=== PATIENT | female | born 1990 ===

== ENCOUNTER 2017-03-12 03:45 | Emergency (ER) | payer BC ==
[~2017-03-12] VITALS: Ht 154.9 cm; Wt 77.1 kg
[~2017-03-12 03:45] MED LIST: AMOXICILLIN500 MG PO; AMOXIL500 MG PO; BIRTH CONTROL1 EAC1 PO; MOTRIN800 MG PO; NKHM; ROBITUSSIN AC 110 ML PO; TRAMADOL HCL50 MG PO; ULTRAM50 MG PO; ZYRTEC10 MG PO
[2017-03-12] MEDS ORDERED: Motrin,Rufen800 MG PO (04:09)
[2017-03-12] MEDS ORDERED: PREDNISONE20 M1 PO (04:09)
[2017-03-12] MEDS ORDERED: KEFLEX500 M1 PO (04:09)
== END 2017-03-12 04:35 | disposition home or self-care (01) ==
LOC: ED 03:45
DX: J03.90 Acute tonsillitis, unspecified (principal)

== ENCOUNTER 2017-04-13 22:40 | Emergency (ER) | payer BC ==
[~2017-04-13] VITALS: Ht 157.4 cm; Wt 78.0 kg
[~2017-04-13 22:40] MED LIST changes: +KEFLEX500 M1 PO; +Motrin,Rufen800 MG PO; +PREDNISONE20 M1 PO
[2017-04-13] MEDS ORDERED: NORCO 5-325 TA1 EACH PO (23:18)
[2017-04-13] MEDS ORDERED: CLINDAMYCIN HC300 MG PO (23:18)
[2017-04-13] MEDS ORDERED: Motrin,Rufen800 MG PO (23:18)
== END 2017-04-14 00:06 | disposition home or self-care (01) ==
LOC: ED 22:40
DX: K04.01 Reversible pulpitis (principal); K02.9 Dental caries, unspecified; F17.200 Nicotine dependence, unspecified, uncomplicated

== ENCOUNTER 2017-05-08 22:10 | Emergency (ER) | payer BC ==
[~2017-05-08] VITALS: Ht 157.4 cm; Wt 77.1 kg
[~2017-05-08 22:10] MED LIST changes: +CLINDAMYCIN HC300 MG PO; +NORCO 5-325 TA1 EACH PO
== END 2017-05-08 23:42 | disposition home or self-care (01) ==
LOC: ED 22:10
DX: S61.214A Laceration without foreign body of right ring finger without damage to nail, initial encounter (principal); F17.200 Nicotine dependence, unspecified, uncomplicated; W25.XXXA Contact with sharp glass, initial encounter; Y93.9 Activity, unspecified; Y92.9 Unspecified place or not applicable; Y99.9 Unspecified external cause status

== ENCOUNTER 2017-08-15 16:06 | Emergency (ER) | payer BC ==
[~2017-08-15] VITALS: Ht 165.1 cm; Wt 79.4 kg
[2017-08-15] MEDS ORDERED: CYCLOBENZAPRINE10 MG PO (16:33)
[2017-08-15] MEDS ORDERED: NAPROSYN500 MG PO (16:33)
== END 2017-08-15 21:24 | disposition home or self-care (01) ==
LOC: ED 16:06
DX: G89.29 Other chronic pain (principal); M54.5 Low back pain

== ENCOUNTER 2018-07-29 18:06 | Emergency (ER) | payer SELFPAY ==
[~2018-07-29] VITALS: Wt 81.6 kg
[~2018-07-29 18:06] MED LIST changes: +CYCLOBENZAPRINE10 MG PO; +NAPROSYN500 MG PO
[2018-07-29] MEDS ORDERED: IBUPROFEN600 MG PO (19:03)
[2018-07-29] MEDS ORDERED: AUGMENTIN 875875 MG PO (19:03)
== END 2018-07-29 19:09 | disposition home or self-care (01) ==
LOC: ED 18:06
DX: K08.89 Other specified disorders of teeth and supporting structures (principal); R51 Headache

== ENCOUNTER 2018-09-17 11:04 | Emergency (ER) | payer SELFPAY ==
[~2018-09-17] VITALS: Ht 160 cm; Wt 79.4 kg
[~2018-09-17 11:04] MED LIST changes: +AUGMENTIN 875875 MG PO; +IBUPROFEN600 MG PO
== END 2018-09-17 14:55 | disposition home or self-care (01) ==
LOC: ED 11:04
DX: S63.501A Unspecified sprain of right wrist, initial encounter (principal); S40.021A Contusion of right upper arm, initial encounter; M25.521 Pain in right elbow; M25.511 Pain in right shoulder; M54.2 Cervicalgia; F17.200 Nicotine dependence, unspecified, uncomplicated; W00.2XXA Other fall from one level to another due to ice and snow, initial encounter; Y93.01 Activity, walking, marching and hiking; Y92.89 Other specified places as the place of occurrence of the external cause; Y99.8 Other external cause status

== ENCOUNTER 2018-12-07 12:07 | Emergency (ER) | payer SELFPAY ==
[~2018-12-07] VITALS: Ht 157.4 cm; Wt 81.6 kg
[2018-12-07] MEDS ORDERED: LIDEX 0.05% CRE15 GM T (14:42)
[2018-12-07] MEDS ORDERED: AMOXICILLIN500 M2 PO (14:42)
== END 2018-12-07 15:12 | disposition home or self-care (01) ==
LOC: ED 12:07
DX: L25.9 Unspecified contact dermatitis, unspecified cause (principal); J20.9 Acute bronchitis, unspecified; F17.210 Nicotine dependence, cigarettes, uncomplicated; Z79.2 Long term (current) use of antibiotics; Z79.899 Other long term (current) drug therapy